=== PATIENT | female | born 1995 | race Caucasian/White ===

== ENCOUNTER 2017-05-17 13:46 | Emergency (ER) | payer BC ==
[~2017-05-17] VITALS: Ht 185.4 cm; Wt 75.0 kg
[2017-05-17 13:51] VITALS: BP 118/56; TEMP 99.7
[2017-05-17] MEDS ORDERED: VYVANSE50 MG PO (13:53)
[2017-05-17 14:32] LABS: MEAN CELL VOLUME 90 fl (80.0-95.0); MEAN CORPUSCULAR HGB CONC 33 g/dl (33.0-37.0); MEAN PLATELET VOLUME 11.5 fl (7.4-10.4); PLATELET COUNT 98 K/mm3 (130-400); RED BLOOD COUNT 3.77 M/mm3 (4.10-5.30); WHITE BLOOD COUNT 2.5 K/mm3 (4.8-10.8)
[2017-05-17 14:41] LABS: ADD PATHOLOGY DIFF REVIEW NO; HEMATOCRIT 33.8 % (35.0-45.0); HEMOGLOBIN 11.2 g/dl (12.0-15.0); MEAN CORPUSCULAR HEMOGLOBIN 30 pg (26.0-32.0)
[2017-05-17 14:41] LABS: PH 7 (5-8); URINE APPEARANCE Hazy; URINE BACTERIA Rare /hpf; URINE BILIRUBIN Positive (NEGATIVE); URINE BLOOD Negative (NEGATIVE); URINE COLOR Amber; URINE GLUCOSE Negative (NEGATIVE); URINE KETONE Negative (NEGATIVE); URINE RBC 0-2 /hpf; URINE URIC ACID CRYSTAL Present /hpf; URINE UROBILINOGEN >=4.0 mg/dL (NEGATIVE); URINE WBC 0-2 /hpf
[2017-05-17 14:53] LABS: ALBUMIN 3.5 gm/dL (3.5-5.0); BILIRUBIN,TOTAL 5.2 mg/dL (0.0-1.0); C-REACTIVE PROTEIN 2.1 mg/dL (0.0-0.9); CALCIUM 8.6 mg/dL (8.4-10.2); CREATININE, serum 0.61 mg/dL (0.52-1.25); POTASSIUM 3.6 mmol/L (3.4-5.0); TOTAL PROTEIN 6.5 gm/dL (6.4-8.2)
[2017-05-17] MEDS ORDERED: ZOFRAN 4MG T4 MG/TAB PO (15:16)
[2017-05-17] MEDS ORDERED: PHENERGAN25 MG RC (15:16)
[2017-05-17 15:38] LABS: BAND 17 % (0-10); EOSINOPHIL 1 % (0-4); NEUTROPHILS 25 % (42.0-75.2); PLATELET ESTIMATE DECREASED (NORMAL); TOTAL CELLS COUNTED 100
[2017-05-17 15:40] VITALS: PULSE 94
== END 2017-05-17 15:40 | disposition home or self-care (01) ==
LOC: COL.ER 13:46
PROVIDERS: Emergency Medicine
DX: B27.90 Infectious mononucleosis, unspecified without complication (principal); R11.2 Nausea with vomiting, unspecified; R74.8 Abnormal levels of other serum enzymes
CPT/HCPCS: J2405; J7030